=== PATIENT | male | born 1970 | race Caucasian/White ===

== ENCOUNTER 2016-12-04 14:58 | Emergency (ER) | payer SELFPAY ==
[2016-12-04 15:07] VITALS: TEMP 98.1; BMI 28.8
[2016-12-04] MEDS ORDERED: CYCLOBENZAPRINE 10 MG TAB PO ONE (15:41)
[2016-12-04] MEDS ORDERED: OXYCODONE HCL 5 MG TABLET PO ONE (15:41)
[2016-12-04] MEDS ORDERED: IBUPROFEN 600 MG TAB PO ONE (15:41)
--- NOTE | 2016-12-04 16:00 | DIRPT ---
CLINICAL DATA: 46-year-old male with right wrist pain after falling from a ladder at home EXAM: RIGHT WRIST - COMPLETE 3+ VIEW COMPARISON: None. FINDINGS: There is no evidence of fracture or dislocation. There is no evidence of arthropathy or other focal bone abnormality. Soft tissues are unremarkable. IMPRESSION: Negative. Electronically Signed By: Guillermo Herrera M.D. On: 12/04/2016 15:57
--- NOTE | 2016-12-04 16:01 | DIRPT ---
CLINICAL DATA: Acute right elbow pain after fall from ladder at home today. Initial encounter. EXAM: RIGHT ELBOW - COMPLETE 3+ VIEW COMPARISON: None. FINDINGS: There is no evidence of fracture, dislocation, or joint effusion. There is no evidence of arthropathy or other focal bone abnormality. Soft tissues are unremarkable. IMPRESSION: Normal right elbow. Electronically Signed By: Tamir Alston Jr, M.D. On: 12/04/2016 15:58
--- NOTE | 2016-12-04 16:24 | DIRPT ---
CLINICAL DATA: Left-sided rib pain and possible foreign body from recent injury EXAM: LEFT RIBS AND CHEST - 3+ VIEW COMPARISON: 12/08/2014 FINDINGS: Cardiac shadow is within normal limits. No acute bony abnormality is seen. A tiny metallic foreign body is noted just beneath the recently placed BB. No focal infiltrate is seen. No other abnormality is noted. IMPRESSION: Tiny metallic foreign body just below the skin marked by a recently placed BB. Electronically Signed By: Rufus Scott M.D. On: 12/04/2016 16:21
--- NOTE | 2016-12-04 16:42 | EDPRACDOC ---
- General Chief Complaint: Fall Stated Complaint: FELL FROM LADDER YESTERDAY C/O NECK PAIN RT ARM PA Time Seen by Provider: 12/04/16 15:31 Information Source: Patient - History of Present Illness Onset: 12/03/2016 1400 HPI: PT PRESENTS TODAY WITH NECK/HEAD PAIN AND RIGHT ELBOW/WRIST PAIN AFTER MECHANICAL FALL YESTERDAY. STATES HE WAS WORKING ON TOP OF HIS TRAILER WHEN HE LOST HIS BALANCE AND FELL BACKWARDS. PT STATES HE STRUCK HIS HEAD/NECK AND RIGHT WRIST/ELBOW. DENIES LOC, JACOBS, DIZZINESS, CP, SHOB, ABD PAIN. PT ALSO STATES THAT HE BELIEVES A SMALL PIECE OF METAL IS IN HIS LEFT CHEST WALL. NO APPARENT DISTRESS. Pain Severity: Reports: Moderate Injuries/Pain Location: Reports: head, face, upper extremity Reason for Fall: Reports: lost balance Loss of Consciousness: no loss of consciousness Associated Symptoms (Fall): Reports: denies symptoms Allergies/Adverse Reactions: Allergies No Known Allergies Allergy (Verified 12/04/16 15:07) Home Medications: Ambulatory Orders Cyclobenzaprine HCl [Flexeril] 10 mg PO TID #21 tab 12/04/16 Meloxicam [Mobic] 7.5 mg PO BID #20 tab 12/04/16 ED Past Medical History - History Reviewed Yes Nurses notes reviewed and agree except as marked - Patient Medical History Additional Past Medical History: Chronic Back Pain Surgical History: Reports: Tonsillectomy/Adnoidectomy - Social Medical History Smoking Status: Never smoker EDM Review of Systems - Review of Systems ROS Negative Except as Marked: Yes All systems reviewed and were negative except as marked Constitutional: No Symptoms Reported Eyes: No Symptoms Reported Respiratory: No Symptoms Reported Cardiovascular: No Symptoms Reported Gastrointestinal: No Symptoms Reported Neurological: No Symptoms Reported Musculoskeletal: Elbow, Neck, Wrist Integumentary: No Symptoms Reported - Physical Exam Constitutional: Alert (Awake), No apparent distress Oriented to: Time, Person, Place Last recorded Vital Signs: Last Vital Signs Temp 98.1 F 12/04/16 15:01 Pulse 67 12/04/16 16:00 Resp 18 12/04/16 16:00 BP 138/86 12/04/16 16:00 Pulse Ox 95 12/04/16 16:00 Oxygen Pulse Oxygen Saturation 95 O2 Device Room Air Oxygen Flow Rate Fraction of Inspired Oxygen ( FIO2) - HEENT Head: Normal Eye Exam: Normal Oropharynx: Normal Tympanic Membrane: Normal ENT EAC: Normal Nose: No Symptoms Reported Neck: Midline, Paraspinal Tenderness, Tender - Respiratory/Cardiovascular Respiratory: Normal - CTA, Other (NOTED VERY SMALL POSSIBLE PUNCTURE WOUND WHERE PT IS FEELING THE METAL; NO ERYTHEMA/DEFORMITY) Cardiovascular: Normal - GI Palpation: Normal Tenderness: Non tender - Musculoskeletal Back: Normal Extremities: Other (PAIN WITH MOVEMENT OF RIGHT WRIST/ELBOW W/OUT APPARENT SWELLING/DEFORMITY/BRUISING) - Integumentary Skin: Normal Lymphatics: Normal - Neurologic Cerebellar: Normal Mood Description: Normal Thought: Coherent Perception: Normal ED Injury/Fall Exam - Physical Exam Head Injury: no evidence of injury Extremity Exam: no evidence of injury Skin: Normal - [place] Coma Score Best Eye Response ([place]): (4) open spontaneously Best Verbal Response ([place]): (5) oriented Best Motor Response ([place]): (6) obeys commands [place] Total: 15 - Departure Disposition: Home Condition: Good Final Diagnosis: Accidental fall Instructions: RICE Therapy (ED) Education/Counseling Given To: Patient Education/Counseling Given Regarding: Diagnosis, Treatment, Follow Up Referrals: None,No Provider [Primary Care Provider] - One Week Prescriptions: New Cyclobenzaprine HCl [Flexeril] 10 mg PO TID #21 tab Meloxicam [Mobic] 7.5 mg PO BID #20 tab Additional Instructions: HEATING PADS TO AREAS OF PAIN FOR ADDITIONAL RELIEF. IF SYMPTOMS PERSIST, FOLLOW UP WITH PCP.
--- NOTE | 2016-12-04 16:59 | DIRPT ---
CLINICAL DATA: Fall from ladder about 4 feet landing on the back of the head. Neck pain. EXAM: CT HEAD WITHOUT CONTRAST CT CERVICAL SPINE WITHOUT CONTRAST TECHNIQUE: Multidetector CT imaging of the head and cervical spine was performed following the standard protocol without intravenous contrast. Multiplanar CT image reconstructions of the cervical spine were also generated. COMPARISON: Multiple exams, including 10/20/2011 FINDINGS: CT HEAD FINDINGS The brainstem, cerebellum, cerebral peduncles, thalami, basal ganglia, basilar cisterns, and ventricular system appear within normal limits. No intracranial hemorrhage, mass lesion, or acute CVA. No calvarial fracture is identified. CT CERVICAL SPINE FINDINGS Degenerative facet arthropathy on the left at C4-5 with associated spurring but no osseous foraminal stenosis. No fracture, prevertebral soft tissue swelling, or subluxation identified. IMPRESSION: 1. No acute intracranial findings or acute cervical spine findings. 2. Note is made of mild degenerative facet arthropathy on the left at C4-5. Electronically Signed By: Waqar Merino M.D. On: 12/04/2016 16:56
[2016-12-04 17:55] VITALS: BP 134/72; PULSE 68
== END 2016-12-04 17:20 | disposition home or self-care (01) ==
LOC: EDMC 14:58
DX: M54.2 Cervicalgia (principal); W11.XXXA Fall on and from ladder, initial encounter; Y93.9 Activity, unspecified
CPT/HCPCS: 70450; 71101; 72125; 73080; 73110; 99283; J3490